=== PATIENT | female | born 1980 | race Caucasian/White ===

== ENCOUNTER 2016-04-04 19:22 | Emergency (ER) | payer OTHER ==
[2016-04-04] MEDS ORDERED: PHENAZOPYRIDINE HCL 200 MG TABLET PO ONE (19:58)
[2016-04-04] MEDS ORDERED: SULFAMETHOXAZOLE/TRIMETHOPRIM 1 EACH TABLET PO ONE (19:58)
[2016-04-04 20:05] LABS: APPEARANCE,URINE CLOUDY (CLEAR); COLOR,URINE YELLOW (YELLOW)
[2016-04-04 20:06] LABS: OCCULT BLOOD,URINE NEGATIVE (NEGATIVE); PH URINE 5.5 (5.0 - 8.0); UROBILINOGEN URINE 0.2 Eu (0.2-1.0)
[2016-04-04] MEDS ORDERED: CIPROFLOXACIN HCL 500 MG TABLET PO ONE ×2 (20:09)
--- NOTE | 2016-04-04 20:24 | ED Physician Documentation ---
Female Urogenital Problems - HISTORIAN Historian: patient - HPI Chief Complaint: Female Urogenital Problems Onset: hours (this morning) Severity: moderate Further Comments: yes (35 year old female patient presents with complaints of dysuria and frequency which started this morning. Concerned she may have a kidney stone.) - Associated Symptoms Urinary Symptoms: frequent urination, discomfort w/ urination, burning w/ urination - ROS CONST: none GI/: denies: nausea, vomiting, diarrhea CVS/RESP: none EYES/ENT: none NEURO/PSYCH: none MS/SKIN/LYMPH: none - PAST HX Past History: other (fibromyalgia) Other History: diabetes Type 2 Surgeries/Procedures: BTL, cholecystectomy Allergies/Adverse Reactions: Allergies Allergy/AdvReac Type Severity Reaction Status Date / Time codeine [Codeine] Allergy Intermediate Dizziness Verified 11/27/15 01:19 acetaminophen Allergy Verified 11/27/15 01:19 [From Darvocet-N] diclofenac potassium Allergy Verified 11/27/15 01:19 [From Cataflam] nalbuphine HCl [From Nubain] Allergy Verified 11/27/15 01:19 oxycodone HCl [From Percocet] Allergy Verified 11/27/15 01:19 propoxyphene napsylate Allergy Verified 11/27/15 01:19 [From Darvocet-N] Home Medications: Ambulatory Orders Medication Instructions Recorded NK [NK] 11/27/15 - SOCIAL HX Smoking History: non-smoker - FAMILY HX Family History: denies: none - VITAL SIGNS Vital Signs: Vital Signs Temp Pulse Resp BP Pulse Ox 128/74 11/27/15 05:28 - REVIEWED ASSESSMENTS Nursing Assessment Reviewed: Yes Vitals Reviewed: Yes Progress - Progress Progress: Patient states she cannot take bactrim DS, changed to cipro - patient denies any allergy to cipro. ED Results Lab/Radiology - Lab Results Lab Results: Lab Results 04/04/16 20:00 Urine Color Yellow (YELLOW) Urine Appearance Cloudy H (CLEAR) Urine pH 5.5 (5.0 - 8.0) Ur Specific George >=1.030 H (1.010-1.030) Urine Protein 3+ mg/dL H mg/dL (NEGATIVE) Urine Ketones Negative mg/dL mg/dL (NEGATIVE) Urine Occult Blood Negative (NEGATIVE) Urine Nitrite Positive H (NEGATIVE) Urine Bilirubin Negative (NEGATIVE) Urine Urobilinogen 0.2 Eu Eu (0.2-1.0) Ur Leukocyte Esterase 1+ H (NEGATIVE) Urine Glucose Negative mg/dL mg/dL (NEGATIVE) - Orders Orders: ED Orders Category Date Time Status UA MACRO DIP ONLY Stat Lab 04/04/16 20:00 Completed URINE CULTURE Stat Lab 04/04/16 20:00 Received Ciprofloxacin HCl [Cipro] Med 04/04/16 20:09 Discontinued 500 mg PO .STK-MED ONE Ciprofloxacin HCl [Cipro] Med 04/04/16 20:09 Discontinued 500 mg PO NOW ONE Phenazopyridine HCl [Pyridium] Med 04/04/16 19:58 Discontinued 200 mg PO NOW ONE Sulfamethoxazole/Trimethoprim [Bactrim Ds] Med 04/04/16 19:58 Discontinued 1 each PO NOW ONE Female Urogenital Problems - EXAM General Appearance: moderate distress EENT: EDWARD Respiratory: no resp. distress, breath sounds nml CVS: reg rate & rhythm, heart sounds normal, equal pulses, no murmur, no gallop , PMI nml, no JVD, no friction rub, 24 Abdomen: soft, non-tender, no organomegaly, no distention, nml bowel sounds, tenderness (suprapubic) Back: non-tender, painless ROM Skin: color nml, no rash, warm,dry Extremities: non-tender, normal range of motion, no evidence of injury, no edema , J, [employer]PUT[employer] Neuro: oriented X3, CN's nml as tested, motor nml, sensation nml, mood/affect nml Discharge Clincal Impression: UTI (urinary tract infection) Qualifiers: Urinary tract infection type: site unspecified Hematuria presence: without hematuria Qualified Code(s): N39.0 - Urinary tract infection, site not specified Referrals: Mickie Galvez FISCAL AGENT [Primary Care Provider] - 2 Days Home Medications: Ambulatory Orders NK [NK] 11/27/15 Condition: Stable Decision to Admit: NO Decision Time: 20:25
[2016-04-04 20:34] VITALS: BP 128/68
== END 2016-04-04 20:27 ==
LOC: ED 19:22
DX: N39.0 Urinary tract infection, site not specified (principal)
CPT/HCPCS: 81002; 87088; 87186; 99282; 99283

== ENCOUNTER 2017-01-14 14:04 | Emergency (ER) | payer OTHER ==
--- NOTE | 2017-01-14 14:31 | ED Physician Documentation ---
Upper Respiratory Symptoms - HISTORIAN Historian: patient - HPI Stated Complaint: Cough/Congestion Chief Complaint: Cough/ Upper Respiratory Additional Information: cough uri viral onset 5d ago persists wheezing non productive chest tightness chills no fever Onset: days ago (5) Duration: intermittent episodes Context: denies: recent foreign travel, insect bite(s) Severity: moderate Associated Symptoms: chills, hurts to breathe. denies: fever, sweating, earache , runny nose, sinus pain, sinus drainage, productive cough Worsened by Deep Breath: Yes - ROS CONST/EYES: denies: weakness, eye redness, eye itching CVS/RESP: shortness of breath (w cough) LYMPH: denies: leg swelling GI/: denies: abdominal pain, problems urinating, vomiting, nausea, diarrhea NEURO/PSYCH: dizziness. denies: fainting, confusion MS/SKIN: joint pain, muscle aches - PAST HX Lung Disease: other (IBS FIBROMYALGIA DIABETES DJD) Other History: diabetes Type 2. denies: cancer chemo, cancer radiation tx, cardiac disease, hepatitis Surgeries/Procedures: cholecystectomy, BLT Immunizations: denies: influenza Allergies/Adverse Reactions: Allergies Allergy/AdvReac Type Severity Reaction Status Date / Time codeine [Codeine] Allergy Intermediate Dizziness Verified 11/27/15 01:19 acetaminophen Allergy Verified 11/27/15 01:19 [From Darvocet-N] diclofenac potassium Allergy Verified 11/27/15 01:19 [From Cataflam] nalbuphine HCl [From Nubain] Allergy Verified 11/27/15 01:19 oxycodone HCl [From Percocet] Allergy Verified 11/27/15 01:19 propoxyphene napsylate Allergy Verified 11/27/15 01:19 [From Darvocet-N] sulfamethoxazole Allergy Verified 01/14/17 14:16 [From Bactrim] tramadol HCl [From Ultram] Allergy Verified 01/14/17 14:16 trimethoprim [From Bactrim] Allergy Verified 01/14/17 14:16 Home Medications: Ambulatory Orders Medication Instructions Recorded Atorvastatin Calcium [Lipitor] 80 mg PO HS 01/14/17 Baclofen [Lioresal] 10 mg PO QID 01/14/17 Ergocalciferol (Vitamin D2) 400 unit PO 01/14/17 [Vitamin D] Ibuprofen [Advil] 400 mg PO 01/14/17 Liraglutide [Victoza 3-Rogelio] 0.6 mg SQ 01/14/17 - SOCIAL HX Smoking History: less than 1 pack/day Alcohol Use: none Drug Use: none - FAMILY HX Family History: no significant history - VITAL SIGNS Vital Signs: Vital Signs Temp Pulse Resp BP Pulse Ox 98.2 F 96 H 18 130/78 99 01/14/17 14:05 01/14/17 14:05 01/14/17 14:05 01/14/17 14:05 01/14/17 14:05 - REVIEWED ASSESSMENTS Nursing Assessment Reviewed: Yes Vitals Reviewed: Yes Upper Respiratory Symptoms - EXAM General Appearance: mild distress EENT: eyes nml inspection, nose nml. No: pain over sinuses, conjunctival erythema, conjunctival exudate, TM erythema, TM dullness (R), loss of TM landmarks (L) Neck: normal inspection, supple. No: meningismus Respiratory: no resp. distress, wheezes, rales, rhonchi. No: breath sounds nml , no pleuritic chest pain, resp. fatigue Abdomen: non-tender, no distention CVS: reg rate & rhythm, heart sounds normal Skin: color nml, no rash, warm,dry. No: cyanosis, diaphoresis Neuro/Psych: oriented x3, mood/affect nml Discharge Clincal Impression: VIRAL RESP INFECTION, DIABETES , NICOTINE ABUSE Referrals: Mickie Galvez FNP [Primary Care Provider] - 2 Days Comments: [facility] [employer] Condition: Good Disposition: 01 HOME, SELF-CARE Decision to Admit: NO Decision Time: 14:36
[2017-01-14 14:33] VITALS: BP 139/87
== END 2017-01-14 14:32 | disposition home or self-care (01) ==
LOC: ED 14:04
DX: J98.8 Other specified respiratory disorders (principal); E11.9 Type 2 diabetes mellitus without complications
CPT/HCPCS: 99283

== ENCOUNTER 2017-07-20 22:49 | Emergency (ER) | payer OTHER ==
[2017-07-20] MEDS: MECLIZINE HCL 25 MG TABLET PO ONE (23:58)
[2017-07-21 00:11] LABS: BASOPHILS % 0.3 (0.0-1.5); EOSINOPHILS % 1.8 % (0.0-6.8); MEAN CORPUSCULAR HEMOGLOBIN 30.3 pg (28.0-34.0); MEAN CORPUSCULAR VOLUME 93.1 fl (80.0-100.0)
[2017-07-21 00:38] LABS: eGFR (African) > 60; eGFR (Non-African) > 60
[2017-07-21] MEDS: POTASSIUM CHLORIDE 20 MEQ TABLET.ER PO ONE (01:08)
--- NOTE | 2017-07-21 01:09 | ED Physician Documentation ---
Dizziness - HISTORIAN Historian: patient - HPI Stated Complaint: dizziness Chief Complaint: Dizziness Additional Information: swelling legs Timing: sudden onset Duration: intermittent episodes Last known Well Date: 07/20/17 Last Known Well Time: 12:00 Severity: mild Associated Symptoms: vestibular Decreased Ability to Stand/ Walk: off balance Usually: walks w/o assistance Worsened By: changing position, movement of head - ROS CONST: other (allergy symptoms) EYES/ENT: none GI/: none MS/SKIN/LYMPH: none NEURO/PSYCH: none CVS/RESP: none - PAST HX Past History: diabetes Type 2 Cardiac Disease: none Surgeries/Procedures: cholecystectomy Immunizations: referred to PCP Allergies/Adverse Reactions: Allergies Allergy/AdvReac Type Severity Reaction Status Date / Time codeine [Codeine] Allergy Intermediate Dizziness Verified 07/20/17 23:12 acetaminophen Allergy Verified 07/20/17 23:12 [From Darvocet-N] diclofenac potassium Allergy Verified 07/20/17 23:12 [From Cataflam] nalbuphine HCl [From Nubain] Allergy Verified 07/20/17 23:12 oxycodone HCl [From Percocet] Allergy Verified 07/20/17 23:12 propoxyphene napsylate Allergy Verified 07/20/17 23:12 [From Darvocet-N] sulfamethoxazole Allergy Verified 07/20/17 23:12 [From Bactrim] tramadol HCl [From Ultram] Allergy Verified 07/20/17 23:12 trimethoprim [From Bactrim] Allergy Verified 07/20/17 23:12 Home Medications: Ambulatory Orders Medication Instructions Recorded Baclofen [Lioresal] 10 mg PO QID PRN 01/14/17 Liraglutide [Victoza 3-Rogelio] 0.6 mg SQ QDAY 01/14/17 - SOCIAL HX Smoking History: cigarettes Alcohol Use: none Drug Use: none - FAMILY HX Family History: none - VITAL SIGNS Vital Signs: Vital Signs Temp Pulse Resp BP Pulse Ox 98.2 F 92 H 16 108/68 98 07/20/17 22:50 07/20/17 23:13 07/20/17 22:50 07/20/17 23:13 07/20/17 22:50 - REVIEWED ASSESSMENTS Nursing Assessment Reviewed: Yes Vitals Reviewed: Yes Progress - Results/Orders Results/Orders: cbc, cmp, ua ordered - Progress Progress: pt. given 20 meq potassium chloride p.o. in ER Critical Care Note - Critical Care Note Total Time (mins): 0 ED Results Lab/Radiology - Lab Results Lab Results: Lab Results 07/20/17 07/20/17 00:00 00:00 WBC 12.50 K/ul H K/ul (4.00-12.00) RBC 4.33 M/ul M/ul (3.90-5.20) Hgb 13.1 g/dL g/dL (12.0-16.0) Hct 40.3 % % (34.5-46.5) MCV 93.1 fl fl (80.0-100.0) MCH 30.3 pg pg (28.0-34.0) MCHC 32.6 g/dL g/dL (30.0-36.0) RDW 12.8 % % (11.3-14.3) Plt Count 262 K/mm3 K/mm3 (130-400) Neut % (Auto) 64.3 % % (39.0-79.0) Lymph % (Auto) 29.5 % % (16.0-50.0) [place] % (Auto) 3.0 % % (0.0-11.0) Eos % (Auto) 1.8 % % (0.0-6.8) Baso % (Auto) 0.3 (0.0-1.5) Neut # (Auto) 8.0 # k/uL H # k/uL (1.4-7.7) Lymph # (Auto) 3.7 # k/uL # k/uL (0.6-4.0) [place] # (Auto) 0.4 # k/uL # k/uL (0.0-0.9) Eos # (Auto) 0.2 # k/uL # k/uL (0.0-0.6) Baso # (Auto) 0.0 # k/uL # k/uL (0.0-0.5) Reactive Lymphs % 1.0 % % (0.0-5.0) Reactive Lymphs # 0.1 # k/uL # k/uL (0.0-0.8) Sodium 137 mmol/L mmol/L (136-145) Potassium 3.3 mmol/L L mmol/L (3.5-5.1) Chloride 105 mmol/L mmol/L (98-107) Carbon Dioxide 24 mmol/L mmol/L (22-30) BUN 10 mg/dL mg/dL (7-17) Creatinine 0.50 mg/dL L mg/dL (0.52-1.04) Estimated Creat Clear 286 Est GFR ( Amer) > 60 (60 - ) Est GFR (Non-Af Amer) > 60 (60 - ) Glucose 128 mg/dL H mg/dL (74-106) Calcium 9.0 mg/dL mg/dL (8.4-10.2) Total Bilirubin 0.5 mg/dL mg/dL (0.2-1.3) AST 24 U/L U/L (15-46) ALT 44 U/L U/L (13-69) Alkaline Phosphatase 104 U/L U/L (38-126) Total Protein 6.5 g/dL g/dL (6.3-8.2) Albumin 3.7 g/dL g/dL (3.5-5.0) - Radiology Radiology Impressions: none ordered - Orders Orders: ED Orders Category Date Time Status Orthostatics 1T Care 07/20/17 23:13 Active CBC/PLATELET/DIFF Routine Lab 07/20/17 00:00 Completed CMP Routine Lab 07/20/17 00:00 Completed UA [URINALYSIS] Routine Lab 07/20/17 Ordered Meclizine HCl [Antivert] Med 07/20/17 23:43 Discontinued 25 mg PO NOW ONE Potassium Chloride [Klor-Con M20] Med 07/21/17 01:07 Once 20 meq PO NOW ONE Dizziness Physical Exam - Physical Exam General Appearance: no distress EENT: eye inspection normal, pharynx normal, no signs of dehydration, EDWARD, no nystagmus, other (eustachian tenderness bilat.) Neck: normal inspection, thyroid normal. No: lymphadenopathy Respiratory: no respiratory distress, breath sounds nml, chest non-tender CVS: reg rate & rhythm, heart sounds normal, equal pulses, no murmur Abdomen: soft, no organomegaly, normal bowel sounds, no abdominal bruit, no distension, non-tender Skin: warm/dry, normal color Neuro: nml orientation, nml speech Extremities: non-tender, normal range of motion, no edema Cranial: nml as tested, no evidence of acute CVA Cerebellar: abnml Romberg test Sensorimotor: motor nml, sensation nml Discharge Clincal Impression: Vertigo, Hypokalemia Seasonal allergies Qualifiers: Allergic rhinitis trigger: pollen Qualified Code(s): J30.1 - Allergic rhinitis due to pollen Referrals: Mickie Galvez FNP [Primary Care Provider] - 2 Days Comments: Discharged in stable condition with scripts for Flonase #1 bottle 2 sprays each nostril bid and Meclizine 1 pill 3x/day 25 mg #21 Condition: Stable Disposition: HOME, SELF-CARE Decision to Admit: NO Decision Time: 01:08
[2017-07-21 01:17] VITALS: BP 143/82
[2017-07-22 03:55] LABS: APPEARANCE,URINE CLEAR (CLEAR); COLOR,URINE YELLOW (YELLOW); OCCULT BLOOD,URINE 1+ (NEGATIVE); UROBILINOGEN URINE 0.2 Eu (0.2-1.0)
== END 2017-07-21 01:10 | disposition home or self-care (01) ==
LOC: ED 22:49
DX: H81.49 Vertigo of central origin, unspecified ear (principal); E87.6 Hypokalemia; J30.1 Allergic rhinitis due to pollen
CPT/HCPCS: 80053; 81002; 85025; A9270; 99283

== ENCOUNTER 2019-03-17 20:24 | Emergency (ER) | payer OTHER ==
--- NOTE | 2019-03-17 21:29 | ED Physician Documentation ---
General Adult - HISTORIAN Historian: patient - HPI Stated Complaint: cough, congestion Chief Complaint: General Adult Onset: hours Timing: still present Severity: moderate Further Comments: yes (Pt is a 38 yo female with cough congestion, loss of voice x 1 day. Pt has some chest tightness with deep breath. Pt has hx DM and does not wish to take steroids.) - ROS CONST: no problems EYES/ENT: other (loss of voice, sore throat 2nd to cough) CVS/RESP: cough, other (wheezing) GI/: none MS/SKIN/LYMPH: none - PAST HX Past History: other (DM, bronchitis last month, HLD, HSV1) Allergies/Adverse Reactions: Allergies Allergy/AdvReac Type Severity Reaction Status Date / Time codeine [Codeine] Allergy Intermediate Dizziness Verified 03/17/19 21:26 acetaminophen Allergy Verified 03/17/19 21:26 [From Darvocet-N] diclofenac potassium Allergy Verified 03/17/19 21:26 [From Cataflam] nalbuphine HCl [From Nubain] Allergy Verified 03/17/19 21:26 oxycodone HCl [From Percocet] Allergy Verified 03/17/19 21:26 propoxyphene napsylate Allergy Verified 03/17/19 21:26 [From Darvocet-N] sulfamethoxazole Allergy Verified 03/17/19 21:26 [From Bactrim] tramadol HCl [From Ultram] Allergy Verified 03/17/19 21:26 trimethoprim [From Bactrim] Allergy Verified 03/17/19 21:26 Home Medications: Ambulatory Orders Medication Instructions Recorded Liraglutide [Victoza 3-Rogelio] 0.6 mg SQ QDAY 01/14/17 Atorvastatin Calcium [Lipitor] 40 mg PO D 08/07/17 Cetirizine HCl [Zyrtec] 10 mg PO D 08/07/17 Ibuprofen 600 mg PO PRN PRN 08/07/17 Valacyclovir HCl [Valtrex] 500 mg PO DAILY 03/17/19 - SOCIAL HX Smoking History: cigarettes - FAMILY HX Family History: No - VITAL SIGNS Vital Signs: Vital Signs Temp Pulse Resp BP Pulse Ox 115/50 04/11/18 11:51 - REVIEWED ASSESSMENTS Nursing Assessment Reviewed: Yes Vitals Reviewed: Yes Progress - Progress Progress: Duoneb HFN CXR: No focal consolidation or pleural effusion. Bibasilar, right greater than left increased lung markings may be due to patchy infiltrate/atelectasis. Azithromycin 500 mg po in ER. increased lung marking, possible patchy infiltrate/early pneumonia Rx Azithromycin 250 mg. Take one daily for 5 days. Rx Albuterol (90 mcg/spray) MDI. Take 2 puffs every 4 to 6 hours as needed. General Adult Physical Exam - PHYSICAL EXAM GENERAL APPEARANCE: mild distress EENT: pharynx normal NECK: normal inspection, supple RESPIRATORY: wheezes CVS: reg rate & rhythm, heart sounds normal ABDOMEN: soft, no organomegaly, normal bowel sounds BACK: normal inspection, no CVA tenderness SKIN: warm/dry, normal color EXTREMITIES: non-tender, normal range of motion, no evidence of injury NEURO: oriented X3, motor nml, sensation nml Discharge Clincal Impression: possible early pneumonia, patchy infiltrate Referrals: Mickie Galvez FNP [Primary Care Provider] - Condition: Good Disposition: 01 HOME, SELF-CARE Decision to Admit: NO Decision Time: 22:46
[2019-03-17] MEDS ORDERED: IPRATROPIUM/ALBUTEROL SULFATE 3 ML AMPUL.NEB NEB ONE (21:32)
[2019-03-17 21:56] VITALS: BP 121/50
--- NOTE | 2019-03-17 22:39 | Diagnostic Imaging Report ---
PATIENT MR#: [id number] PATIENT PATIENT NAME: SUZANNE GANT DATE OF : 1980 REFERRING PHYSICIAN: Mandeep Rankin EXAM DATE: 03/17/2019 ACCESSION NUMBER: [id number] EXAM DESCRIPTION: CHEST 2VIEW 2 views of the chest History: COUGH Comparison:, none available Heart is normal in size. Basilar prominent bronchovascular markings are seen. No pleural effusion or pneumothorax. No acute osseous pathology Impression: 1. No focal consolidation or pleural effusion. Bibasilar, right greater than left increased lung pedrito ings may be due to patchy infiltrate/atelectasis. Read by: Dr. Concepcion Queen Transcribed by: Transcribed Date: Electronically signed by: Dr. Concepcion Queen Date signed: 03/17/2019 10:39:03 PM
[2019-03-17] MEDS ORDERED: AZITHROMYCIN 250 MG TABLET PO ONE (22:42)
[2019-03-18 06:15] LABS: APPEARANCE,URINE CLEAR (CLEAR); COLOR,URINE YELLOW (YELLOW); OCCULT BLOOD,URINE TRACE (NEGATIVE); UROBILINOGEN URINE 0.2 Eu (0.2-1.0)
== END 2019-03-17 22:59 | disposition home or self-care (01) ==
LOC: ED 20:24
DX: R91.8 Other nonspecific abnormal finding of lung field (principal)
CPT/HCPCS: 81002; 94640; 99284